=== PATIENT | female | born 1995 | race African-American/Black ===

== ENCOUNTER → 2022-09-17 | Day surgery (SDC) | payer BC ==
[2022-09-15 14:45] VITALS: BMI 31.8
[~2022-09-17] MED LIST: Bupivacaine HCl 0.5%/Epinephrine 1:200,000/PF 30 ml Vial ONE; Clindamycin/D5W 600 mg/50 ml Premix Bag ONE; Dexamethasone 4 mg/ml Vial ONE; Esmolol 100 MG/10 ML VIAL ONE; Fentanyl 100 MCG/2 ML VIAL ONE; HYDROcodone/Acetaminophen 5/325 mg Tablet PO PRN; Ketorolac Tromethamine 30 MG/ML VIAL ONE; Lidocaine 1% PF 5 ML VIAL ONE; Lidocaine 2% 6 ML SYR ONE; Midazolam HCl 2 mg/2 ml Vial ONE; Ondansetron PF 4 MG/2 ML Vial ONE; PROPOFOL 40 ML ONE
== END | disposition home or self-care (01) ==
LOC: CSHSDC 06:18
PROVIDERS: ATTEND Surgery
PROC: 0HBCXZZ Excision of Left Upper Arm Skin, External Approach (ICD-10-PCS; principal; 2022-09-17)
PROC: 06BY0ZC Excision of Hemorrhoidal Plexus, Open Approach (ICD-10-PCS; principal; 2022-09-17)
DX: D23.62 Other benign neoplasm of skin of left upper limb, including shoulder (principal); K64.4 Residual hemorrhoidal skin tags
CPT/HCPCS: 88304; 88305; 88342; J1100; J1885; J2250; J2405; J2704; J3010; J3490